=== PATIENT | born 1995 ===

== ENCOUNTER 2023-07-24 22:41 | Emergency (ER) | payer BC, OTHER ==
[~2023-07-24] VITALS: Ht 175.3 cm; Wt 81.6 kg
[2023-07-24] MEDS ORDERED: OXYCODONE/APAP 5-325 MG TABLET ONE (23:17)
[2023-07-24] MEDS ORDERED: ONDANSETRON HCL 4 MG TABLET ONE (23:18)
[2023-07-24] MEDS: OXYCODONE/APAP 5-325 MG TABLET PO ONE (23:23)
[2023-07-24] MEDS: ONDANSETRON HCL 4 MG TABLET PO ONE (23:23)
[2023-07-24 23:26] LABS: BASOPHILS # (AUTO) 0.1 K/UL (0.0-0.2); BASOPHILS % (AUTO) 0.5 % (0.0-2.0); EOSINOPHILS # (AUTO) 0.1 K/uL (0.0-0.7); EOSINOPHILS % (AUTO) 0.9 % (0.0-7.0); HEMATOCRIT 42.5 % (31.2-47.1); HEMOGLOBIN 14.8 g/dL (10.9-16.3); LYMPHOCYTES # (AUTO) 3.2 K/uL (0.8-4.8); LYMPHOCYTES % (AUTO) 30.3 % (20.5-51.5); MEAN CORPUSCULAR HEMOGLOBIN 31.5 uug (23.8-33.4); MEAN CORPUSCULAR HGB CONC 35 g/dL (32.3-36.3); MEAN CORPUSCULAR VOLUME 90.6 fL (73.0-96.2); MONOCYTES # (AUTO) 0.8 K/uL (0.1-1.30); MONOCYTES % (AUTO) 7.5 % (0.0-11.0); NEUTROPHILS # (AUTO) 6.5 K/uL (1.8-8.9); NEUTROPHILS % (AUTO) 60.8 % (38.5-71.5); PLATELET COUNT (AUTO) 417 K/uL (152-408); RED BLOOD CELL COUNT(AUTO) 4.69 MIL/uL (3.63-5.63); WHITE BLOOD COUNT (AUTO) 10.7 K/uL (3.6-11.8)
[2023-07-25] MEDS ORDERED: IOHEXOL 300MG/ML 100 ML INFUS..BTL ONE (02:21)
[2023-07-25] MEDS ORDERED: SWABABLE VALVE TRANSFER SET EA MC ONE (02:21)
[2023-07-25 02:39] LABS: CALCIUM 9.1 mg/dL (8.5-10.1); CREATININE 0.9 mg/dL (0.6-1.3)
[2023-07-25] MEDS ORDERED: ONDANSETRON 4 MG/2 ML VIAL ONE (03:33)
[2023-07-25] MEDS: ONDANSETRON 4 MG/2 ML VIAL IV ONE (03:34)
[2023-07-25] MEDS ORDERED: MORPHINE SULFATE 4 MG/1 ML DISP.SYRIN ONE (03:34)
[2023-07-25] MEDS: MORPHINE SULFATE 4 MG/1 ML DISP.SYRIN IV ONE (03:34)
[2023-07-25] MEDS ORDERED: LIDOCAINE 5% PATCH TD ONE ×2 (04:34→04:35)
[2023-07-25] MEDS: LIDOCAINE 5% PATCH TD ONE (04:35)
[2023-07-25] MEDS ORDERED: CYCL5TAB PO (05:42)
[2023-07-25] MEDS ORDERED: IBUP-1955 PO (05:42)
[2023-07-25] MEDS ORDERED: ACET-2605 PO (05:42)
[2023-07-25] MEDS: IBUPROFEN 600 MG TABLET PO ONE (05:45)
[2023-07-25] MEDS ORDERED: ACETAMINOPHEN 325 MG TABLET ONE (06:28)
[2023-07-25] MEDS: ACETAMINOPHEN 650 MG/20.3 ML LIQUID UDC PO ONE (06:35)
[2023-07-25 07:23] VITALS: BP 128/80; O2SAT 96
== END 2023-07-25 06:25 | disposition home or self-care (01) ==
LOC: ER 22:45
DX: S29.8XXA Other specified injuries of thorax, initial encounter (principal); R11.2 Nausea with vomiting, unspecified; Z79.899 Other long term (current) drug therapy; W18.39XA Other fall on same level, initial encounter; Y93.89 Activity, other specified; Y92.89 Other specified places as the place of occurrence of the external cause; Y99.8 Other external cause status
CPT/HCPCS: 99285; 70450; 85025; 85730; 84484; 36415 ×2; 93005; 71260; 72125; 74177; 96374; 96375; 80048; 73564; J2405; Q9967; J2270; A4606; A4663; Q0162